=== PATIENT | female | born 1980 | race African-American/Black ===

== ENCOUNTER 2016-04-04 12:12 | Emergency (ER) | payer MEDICAID, OTHER ==
[~2016-04-04] VITALS: Ht 170.2 cm; Wt 110.0 kg
[~2016-04-04 12:12] MED LIST: BUDE0.5S NEB; EPIP0.3I IM; HYDR2.5C TOPICAL; LEVE10003 PO; NEBULIZER1 MI1; OXCA300T PO; SERT-129 PO; VENTAER INH
[2016-04-04 12:14] VITALS: BP 136/76; PULSE 82; RESP 12; TEMP 98.1; O2SAT 96
--- NOTE | 2016-04-04 15:36 | PD ---
HPI Chief Complaint: Headache Time Seen by Provider: 15:32 Travel History International Travel<30 days: No Contact w/Intl Traveler<30days: No Traveled to known affect area: No History of Present Illness HPI 35-year-old female presents to the emergency department for evaluation of migraine headache for 2 days. Patient reports history of migraine headaches and seizures for several years. Patient denies any fevers or chills. She states she is dizzy for the past 2 days which is new for her. Patient states the headache started 2 days ago and has gradually worsened. She does state it is worse than her typical migraine headaches. She states it is behind her eyes which is where her typical migraine headaches are. Patient wears chronic back pain, but no worsening back pain. She denies any syncope. No weakness. PFSH Past Medical History Asthma: Yes Diminished Hearing: No Musculoskeletal: Yes (FX LEFT ANKLE) ?: Not : 4 Para: 3 Miscarriage: 1 : 1 Past Surgical History Body Medical Devices: IUD Gynecologic Surgery: Yes (LEEP PROCEDURE; IUD) Tonsillectomy: Yes Social History Alcohol Use: Yes (OCCASSIONAL) Tobacco Use: No Substance Use: No Allergies-Medications (Allergen,Severity, Reaction): Coded Allergies: Augmentin (Verified Allergy, Severe, Hives, 04/04/16) E-Mycin (Verified Allergy, Severe, FACIAL SWELLING, EMESIS, 04/04/16) Penicillin (Verified Allergy, Severe, ANAPHALAXIS, 04/04/16) Reported Meds & Prescriptions Reported Meds & Active Scripts Active Nebulizer 1 Mis Mis 1 Ea .ROUTE DIRECTED Budesonide Neb 0.5 Mg/2 Ml Neb 1 Mg NEB Q12HR NEB Sertraline (Sertraline HCl) 100 Mg Tab 100 Mg PO DAILY Reported Oxcarbazepine 300 Mg Tab 300 Mg PO BID Levetiracetam 1,000 Mg Tab 1,000 Mg PO TID Hydrocortisone Topical 2.5% Cream 1 Applic TOPICAL BID Epipen 2-David Inj (Epinephrine) 0.3 Mg/0.3 Ml Pfpen 0.3 Mg IM ONCE PRN Ventolin Hfa 18 GM Inh (Albuterol Sulfate) 90 Mcg/Act Aer 1 Puff INH Q6HR PRN Review of Systems Except as stated in HPI: all other systems reviewed are Neg Physical Exam Exam Limitations: Left AMA Narrative Patient was initially seen in triage. I instructed the patient that I would start the workup. Before I was able to perform a physical exam, the patient stated she did not want to stay any longer here and she was aware that she would leave AGAINST MEDICAL ADVICE. Patient stated she wanted to leave and left. GENERAL: Well-developed well-nourished female patient, ambulatory with a steady gait. Afebrile. SKIN: Warm and dry. HEAD: Normocephalic. Atraumatic. EYES: No scleral icterus. No injection or drainage. RESPIRATORY: No accessory muscle use. MUSCULOSKELETAL: No cyanosis, or edema. Data Data Last Documented VS Vital Signs Date Time Temp Pulse Resp B/P Pulse Ox O2 Delivery O2 Flow Rate FiO2 04/04/16 12:14 98.1 82 12 136/76 96 Room Air MDM Medical Decision Making Medical Screen Exam Complete: Yes Emergency Medical Condition: Yes Medical Record Reviewed: Yes Differential Diagnosis Migraine headache versus tension type headache versus cluster headache Narrative Course 35-year-old female presents to the emergency department for evaluation of migraine headache which she states is worse in her typical migraine headache and dizziness for 2 days. Patient left AGAINST MEDICAL ADVICE before I could do a physical exam. She stated was irritated that she had to wait in the waiting room and did not want to stay any longer. AMA: The risks of leaving against medical advice without further evaluation treatment were discussed with the patient. These risks include cardiac dysfunction, cardiac dysrhythmia, possible heart attack, possible stroke or . The patient indicated understanding of these risks and appeared to have the capacity to make this decision. Diagnosis Primary Impression: Left against medical advice Disposition: 07 AGAINST MEDICAL ADVICE Dee Puckett Apr 04, 2016 15:36
[2016-04-05] MEDS ORDERED: BUDE0.5S NEB (13:53)
[2016-07-04] MEDS ORDERED: SULF1TAB23 PO (11:00)
[2016-08-02] MEDS ORDERED: IBUP800T23 PO (09:47)
== END 2016-04-04 13:30 | disposition left against medical advice (07) ==
LOC: NETRI 12:12
DX: R51 Headache (principal); J45.909 Unspecified asthma, uncomplicated
CPT/HCPCS: 99283

== ENCOUNTER 2016-05-30 21:43 | Emergency (ER) | payer MEDICAID ==
[~2016-05-30] VITALS: Ht 170.2 cm; Wt 111.0 kg
[2016-05-30 21:45] VITALS: BP 122/79; PULSE 87; RESP 16; TEMP 98.5; O2SAT 96
--- NOTE | 2016-05-30 22:35 | PD ---
Physical Exam Time Seen by Provider: 22:33 Narrative 35 Y/O FEMALE HERE WITH SYNCOPAL EVENT AT WORK. WOKE UP ON THE GROUND. HX OF SEIZURE DISORDER BUT DOESN'T BELIEVE SHE HAD A SEIZURE BECAUSE SHE HAD NO INCONTINENCE. COMPLAINS OF H/A, NECK PAIN, NAUSEA. VSS seen at triage desk. Awaiting bed placement. Data Data Last Documented VS Vital Signs Date Time Temp Pulse Resp B/P Pulse Ox O2 Delivery O2 Flow Rate FiO2 05/30/16 21:45 98.5 87 16 122/79 96 MDM Medical Record Reviewed: Yes Supervised Visit with RANJEET: Yes Mu Lee May 30, 2016 22:35
[2016-05-31] MEDS ORDERED: LACO100 PO (00:20)
[2016-05-31] MEDS ORDERED: VIMP200T PO (00:20)
[2016-05-31 00:22] VITALS: BP 133/87; PULSE 90; RESP 16; O2SAT 99
[2016-05-31] MEDS ORDERED: SODIUM CHLOR 0.9% 1000 ML INJ 1,000 ML IV ONE (01:29)
[2016-05-31] MEDS ORDERED: SODIUM CHLORIDE 0.9% FLUSH 10 ML FLUSH IVF PRN (01:30)
--- NOTE | 2016-05-31 01:37 | PD ---
HPI Chief Complaint: Syncope/Near-Syncope Time Seen by Provider: 01:26 Travel History International Travel<30 days: No Contact w/Intl Traveler<30days: No Traveled to known affect area: No History of Present Illness HPI Patient is a 35-year-old female with history of seizures, presents to emergency room after syncopal episode. At that she felt fine all day today, reports that she was at work and she reports that all of a sudden she was found on the ground. Patient reports that she thinks that she may have passed out. Patient reports that she does have history of seizures, reports that she takes Trileptal as well as Vinpap for her seizures, she also follows with Dr. Watson with neurology. Reports that she began to have seizures in September 2014, reports that she is unsure if she had a seizure today, reports that she has no incontinence of urine after her syncopal episode. Patient reports headache and nausea at this time. Patient denies chest pain or shortness breath. Patient with no fevers or chills, patient with no other complaints. PFSH Past Medical History Asthma: Yes Diminished Hearing: No Musculoskeletal: Yes (FX LEFT ANKLE) Seizures: Yes Tetanus Vaccination: > 5 Years Influenza Vaccination: No ?: Not LMP: MAR 2016 : 4 Para: 3 Miscarriage: 1 : 1 Tubal Ligation: Yes Past Surgical History Body Medical Devices: IUD Gynecologic Surgery: Yes (LEEP PROCEDURE; IUD) Tonsillectomy: Yes Social History Alcohol Use: Yes (OCCASSIONAL) Tobacco Use: No Substance Use: No Allergies-Medications (Allergen,Severity, Reaction): Coded Allergies: Augmentin (Verified Allergy, Severe, Hives, 05/30/16) E-Mycin (Verified Allergy, Severe, FACIAL SWELLING, EMESIS, 05/30/16) Penicillin (Verified Allergy, Severe, ANAPHALAXIS, 05/30/16) Reported Meds & Prescriptions Reported Meds & Active Scripts Active Budesonide Neb 0.5 Mg/2 Ml Neb 0.5 Mg NEB Q12HR NEB Reported Vimpat (Lacosamide) 200 Mg Tab 200 Mg PO HS Vimpat (Lacosamide) 100 Mg Tab 100 Mg PO BID Oxcarbazepine 300 Mg Tab 300 Mg PO BID Epipen 2-David Inj (Epinephrine) 0.3 Mg/0.3 Ml Pfpen 0.3 Mg IM ONCE PRN Ventolin Hfa 18 GM Inh (Albuterol Sulfate) 90 Mcg/Act Aer 1 Puff INH Q6HR PRN Review of Systems General / Constitutional: No: Fever Eyes: No: Visual changes HENT: No: Headaches Cardiovascular: No: Chest Pain or Discomfort Respiratory: No: Shortness of Breath Gastrointestinal: Positive: Nausea, No: Vomiting, Diarrhea, Abdominal Pain Genitourinary: No: Dysuria Musculoskeletal: No: Pain Skin: No Rash Neurologic: Positive: Syncope, Headache, No: Weakness Psychiatric: No: Depression Endocrine: No: Polydipsia Hematologic/Lymphatic: No: Easy Bruising Physical Exam Narrative GENERAL: Mild distress SKIN: warm/dry. HEAD: Atraumatic. Normocephalic. EYES: Pupils equal and round. No scleral icterus. No injection or drainage. ENT: No nasal bleeding or discharge. Mucous membranes pink and moist. NECK: Trachea midline. No JVD. Patient with C-spine precautions in place CARDIOVASCULAR: Regular rate and rhythm. No murmur appreciated. RESPIRATORY: No accessory muscle use. Clear to auscultation. Breath sounds equal bilaterally. GASTROINTESTINAL: Abdomen soft, non-tender, nondistended. Hepatic and splenic margins not palpable. MUSCULOSKELETAL: No obvious deformities. No clubbing. No cyanosis. No edema. NEUROLOGICAL: Awake and alert. No obvious cranial nerve deficits. Motor grossly within normal limits. Normal speech. PSYCHIATRIC: Appropriate mood and affect; insight and judgment normal. Data Data Last Documented VS Vital Signs Date Time Temp Pulse Resp B/P Pulse Ox O2 Delivery O2 Flow Rate FiO2 05/31/16 02:47 65 16 115/68 99 Room Air 05/30/16 21:45 98.5 Orders Complete Blood Count With Diff (05/31/16 01:29) Electrocardiogram (05/31/16 ) Ecg Monitoring (05/31/16 01:29) Iv Access Insert/Monitor (05/31/16 01:29) Oximetry (05/31/16 01:29) Comprehensive Metabolic Panel (05/31/16 01:29) Sodium Chlor 0.9% 1000 Ml Inj (Ns 1000 M (05/31/16 01:29) Sodium Chloride 0.9% Flush (Ns Flush) (05/31/16 01:30) Urinalysis - C+S If Indicated (05/31/16 01:29) Ed Urine Pregnancytest Poc (05/31/16 01:29) Ct Brain W/O Iv Contrast(Rout) (05/31/16 01:29) Ct Cerv Spine W/O Contrast (05/31/16 ) Dexamethasone Inj (Decadron Inj) (05/31/16 01:45) Metoclopramide Inj (Reglan Inj) (05/31/16 01:45) Labs Laboratory Tests Test 05/31/16 01:30 White Blood Count 12.8 TH/MM3 Red Blood Count 4.75 MIL/MM3 Hemoglobin 13.0 GM/DL Hematocrit 40.3 % Mean Corpuscular Volume 84.8 FL Mean Corpuscular Hemoglobin 27.5 PG Mean Corpuscular Hemoglobin 32.4 % Concent Red Cell Distribution Width 14.0 % Platelet Count 262 TH/MM3 Mean Platelet Volume 8.4 FL Neutrophils (%) (Auto) 79.0 % Lymphocytes (%) (Auto) 13.7 % Monocytes (%) (Auto) 4.0 % Eosinophils (%) (Auto) 2.9 % Basophils (%) (Auto) 0.4 % Neutrophils # (Auto) 10.1 TH/MM3 Lymphocytes # (Auto) 1.8 TH/MM3 Monocytes # (Auto) 0.5 TH/MM3 Eosinophils # (Auto) 0.4 TH/MM3 Basophils # (Auto) 0.0 TH/MM3 CBC Comment DIFF FINAL Differential Comment Urine Color YELLOW Urine Turbidity HAZY Urine pH 6.0 Urine Specific [place] 1.027 Urine Protein TRACE mg/dL Urine Glucose (UA) NEG mg/dL Urine Ketones NEG mg/dL Urine Occult Blood MOD Urine Nitrite NEG Urine Bilirubin NEG Urine Urobilinogen LESS THAN 2.0 MG/DL Urine Leukocyte Esterase SMALL Urine RBC 3 /hpf Urine WBC 3 /hpf Urine Squamous Epithelial 19 /hpf Cells Urine Bacteria RARE /hpf Urine Mucus MOD /lpf Microscopic Urinalysis Comment CULT NOT INDICATED Sodium Level 140 MEQ/L Potassium Level 3.5 MEQ/L Chloride Level 104 MEQ/L Carbon Dioxide Level 29.0 MEQ/L Anion Gap 7 MEQ/L Blood Urea Nitrogen 14 MG/DL Creatinine 0.69 MG/DL Estimat Glomerular Filtration 116 ML/MIN Rate Random Glucose 113 MG/DL Calcium Level 9.1 MG/DL Total Bilirubin 0.1 MG/DL Aspartate Amino Transf 15 U/L (AST/SGOT) Alanine Aminotransferase 24 U/L (ALT/SGPT) Alkaline Phosphatase 93 U/L Total Protein 7.6 GM/DL Albumin 3.7 GM/DL MDM Medical Decision Making Medical Screen Exam Complete: Yes Emergency Medical Condition: Yes Interpretation(s) EKG at 0143 NSR at 70bpm, qt/qtc: 395/416, no acute st or t wave changes Vital Signs Date Time Temp Pulse Resp B/P Pulse Ox O2 Delivery O2 Flow Rate FiO2 05/31/16 00:22 90 16 133/87 99 Room Air 05/30/16 22:34 16 05/30/16 21:45 98.5 87 16 122/79 96 Differential Diagnosis Electrolyte abnormality, syncope, seizure episode, intracranial hemorrhage, cervical spine fracture Narrative Course 35-year-old female with history of seizures, presents to emergency room after a possible syncopal episode. Patient reports that she was at work today, reports that her coworkers found her on the ground. Reports that she does not remember herself falling, tonight. Reports that the last thing that she remembers was waking up to her coworkers at her side. Patient unsure if she had a seizure episode today, she does have history of seizures, last seizure was a few weeks ago. Patient reports that she has been compliant with her medications. Patient currently complaining of headache and neck pain at this time. CT of the head and neck ordered. Labs ordered as well. Plan to hydrate patient and give IV antiemetics. CBC & BMP Diagram 05/31/16 01:[address] 05/31/16 0129 Signed Impressions: Service Date/Time: Tuesday, May 31, 2016 02:29 - CONCLUSION: No acute disease. Ean Pittman MD Cervical Spine CT 05/31/16 0000 Signed Impressions: Service Date/Time: Tuesday, May 31, 2016 02:33 - CONCLUSION: No fracture or subluxation. Ean Pittman MD Patient reevaluated, patient feeling much better at this time. I reviewed all labs and all studies with patient in detail. She will Follow-up with her primary care doctor as well to neurologist and will return to the emergency room as needed. Diagnosis Primary Impression: Syncopal seizure Additional Impression: Cephalgia Patient Instructions: General Instructions Additional Instructions: Please follow-up with your primary care doctor as well as your neurologist in 2- 3 days Return to emergency room as needed Return to emergency room if symptoms return Please take all medications as prescribed Do not drive the vehicle until you are cleared by your neurologist Disposition: 01 DISCHARGE HOME Condition: Stable Toshia Boyle DO May 31, 2016 01:37
[2016-05-31 01:41] VITALS: RESP 16; O2SAT 100
[2016-05-31 01:45] LABS: AUTOMATED NEUTROPHIL # 10.1 TH/MM3 (1.8-7.7); BASOPHIL % 0.4 % (0.0-2.0); EOSINOPHIL # 0.4 TH/MM3 (0-0.4); EOSINOPHIL % 2.9 % (0.0-4.0); HEMATOCRIT 40.3 % (35.0-46.0); HEMO FLAGS DIFF FINAL; LYMPH % 13.7 % (9.0-44.0); LYMPHOCYTE # 1.8 TH/MM3 (1.0-4.8); MEAN CELL VOLUME 84.8 FL (80.0-100.0); MEAN CORPUSCULAR HEMOGLOBIN 27.5 PG (27.0-34.0); MEAN CORPUSCULAR HGB CONC 32.4 % (32.0-36.0); PLATELET COUNT 262 TH/MM3 (150-450); RED BLOOD COUNT 4.75 MIL/MM3 (4.00-5.30); WHITE BLOOD COUNT 12.8 TH/MM3 (4.0-11.0)
[2016-05-31] MEDS ORDERED: DEXAMETHASONE SOD PHOS 20 MG/5 ML VIAL IV PUSH ONE (01:45)
[2016-05-31] MEDS ORDERED: METOCLOPRAMIDE HCL 10 MG/2 ML VIAL IV PUSH ONE (01:45)
[2016-05-31 02:00] LABS: BACTERIA, URINE RARE /hpf; BLOOD, URINE MOD (NEG); COMMENT (UR) CULT NOT INDICATED; CULTURE IF INDICATED CULT NOT INDICATED; GLUCOSE,URINE NEG (NEG); KETONE, URINE NEG (NEG); MUCUS URINE MOD /lpf (OCC); NITRITE,URINE NEG (NEG); SQUAMOUS EPITHELIAL CELL URINE 19 /hpf (0-5); URINE COLOR YELLOW (YELLW/STRAW)
[2016-05-31 02:09] LABS: ALKALINE PHOSPHATASE 93 U/L (45-117); ALT (GPT) 24 U/L (10-53); TOTAL BILIRUBIN ADULT 0.1 MG/DL (0.2-1.0)
[2016-05-31 02:16] LABS: ANION GAP 7 MEQ/L (5-15); AST (GOT) 15 U/L (15-37); BLOOD UREA NITROGEN 14 MG/DL (7-18); CHLORIDE 104 MEQ/L (98-107); GLOMERULAR FILTRATION RATE 116 ML/MIN (>89); POTASSIUM 3.5 MEQ/L (3.5-5.1); SODIUM (NA) 140 MEQ/L (136-145)
[2016-05-31 02:47] VITALS: BP 115/68; PULSE 65; RESP 16; O2SAT 99
--- NOTE | 2016-05-31 02:54 | RADRPT ---
EXAM DATE/TIME: 05/31/2016 02:29 [facility] COMPARISON: No previous studies available for comparison. INDICATIONS : Syncopal episode. Postive loss of consciousness. Possible head and neck trauma. RADIATION DOSE: 56.35 CTDIvol (mGy) MEDICAL HISTORY : Seizures. SURGICAL HISTORY : Tonsillectomy. Tubal ligation. ENCOUNTER: Initial ACUITY: 1 day PAIN SCALE: 4/10 LOCATION: cranial TECHNIQUE: Multiple contiguous axial images were obtained of the head. Using automated exposure control and adj ustment of the mA and/or kV according to patient size, radiation dose was kept as low as reasonably a chievable to obtain optimal diagnostic quality images. FINDINGS: CEREBRUM: The ventricles are normal for age. No evidence of midline shift, mass lesion, hemorrhage or acute in farction. No extra-axial fluid collections are seen. POSTERIOR FOSSA: The cerebellum and brainstem are intact. The 4th ventricle is midline. The cerebellopontine angle i s unremarkable. EXTRACRANIAL: The visualized portion of the orbits is intact. SKULL: The calvaria is intact. No evidence of skull fracture. CONCLUSION: No acute disease. Ean Pittman MD on May 31, 2016 at 2:49 Board Certified Radiologist. This report was verified electronically.
--- NOTE | 2016-05-31 03:05 | RADRPT ---
EXAM DATE/TIME: 05/31/2016 02:33 [facility] COMPARISON: CT CERVICAL SPINE W/O CONTRAST, December 06, 2013, 18:00. INDICATIONS : Syncopal episode. Postive loss of consciousness. Possible head and neck trauma. RADIATION DOSE: 34.49 CTDIvol (mGy) MEDICAL HISTORY : Seizures. SURGICAL HISTORY : Tonsillectomy. Tubal ligation. ENCOUNTER: Initial ACUITY: 1 day PAIN SCALE: 4/10 LOCATION: neck TECHNIQUE: Volumetric scanning of the cervical spine was performed. Multiplanar reconstructions in the sagittal, coronal and oblique axial planes were performed. Using automated exposure control and adjustment o f the mA and/or kV according to patient size, radiation dose was kept as low as reasonably achievable to obtain optimal diagnostic quality images. FINDINGS: VERTEBRAE: Normal vertebral body height. ALIGNMENT: No evidence of subluxation. C2-C3: The bony spinal canal is normal in size. No evidence of disc bulge or herniation. The neural forami na are bilaterally patent. C3-C4: The bony spinal canal is normal in size. No evidence of disc bulge or herniation. The neural forami na are bilaterally patent. C4-C5: The bony spinal canal is normal in size. No evidence of disc bulge or herniation. The neural forami na are bilaterally patent. C5-C6: The bony spinal canal is normal in size. No evidence of disc bulge or herniation. The neural forami na are bilaterally patent. C6-C7: The bony spinal canal is normal in size. No evidence of disc bulge or herniation. The neural forami na are bilaterally patent. C7-T1: The bony spinal canal is normal in size. No evidence of disc bulge or herniation. The neural forami na are bilaterally patent. CONCLUSION: No fracture or subluxation. Ean Pittman MD on May 31, 2016 at 3:03 Board Certified Radiologist. This report was verified electronically.
[2016-05-31 04:17] VITALS: BP 116/74; TEMP 98.3
--- NOTE | 2016-05-31 11:52 | EKG ---
Date Performed: 05/31/2016 Time Performed: 01:43:15 PTAGE: 35 years EKG: Sinus rhythm MODERATE VOLTAGE CRITERIA FOR LVH, CONSIDER NORMAL VARIANT BORDERLINE ECG PREVIOUS TRACING : 12/09/2005 19.16 DOCTOR: Alf Nascimento Interpretating Date/Time 05/31/2016 11:50:29
[2016-07-04] MEDS ORDERED: SULF1TAB23 PO (11:00)
[2016-08-02] MEDS ORDERED: IBUP800T23 PO (09:47)
== END 2016-05-31 04:18 | disposition home or self-care (01) ==
LOC: NEPC 21:43
DX: R55 Syncope and collapse (principal); R56.9 Unspecified convulsions; R51 Headache; M54.2 Cervicalgia; R11.0 Nausea; R94.31 Abnormal electrocardiogram [ECG] [EKG]; Z87.09 Personal history of other diseases of the respiratory system; Z87.39 Personal history of other diseases of the musculoskeletal system and connective tissue; Z86.69 Personal history of other diseases of the nervous system and sense organs
CPT/HCPCS: 70450; 72125; 80053; 81001; 84703; 85025; 93005; 96361; 96374; 96375; 99284; J1100; J2765; J7030; L0150

== ENCOUNTER 2016-07-30 13:31 | Emergency (ER) | payer MEDICAID ==
[~2016-07-30] VITALS: Ht 170.2 cm; Wt 92.0 kg
[~2016-07-30 13:31] MED LIST changes: -HYDR2.5C TOPICAL; +LACO100 PO; -LEVE10003 PO; -NEBULIZER1 MI1; -SERT-129 PO; +SULF1TAB23 PO; +VIMP200T PO
[2016-07-30 13:33] VITALS: BP 138/76; PULSE 84; RESP 16; TEMP 97.8; O2SAT 98
--- NOTE | 2016-07-30 14:41 | PD ---
HPI Chief Complaint: Seizure Time Seen by Provider: 14:00 Travel History International Travel<30 days: No Contact w/Intl Traveler<30days: No Traveled to known affect area: No History of Present Illness HPI This is a 35 year old female with history of seizure disorder, who presents today after having a seizure while at work. Patient states she fell and struck the left side of her head. She reports pain at left side of her head and left lateral neck. There was no reported incontinence. There is no reported biting of her tongue. There are no other injuries reported. Patient states she's been having more frequent seizures lately. She states that she's been working with her neurologist to adjust her medications. PFSH Past Medical History Asthma: Yes Diminished Hearing: No Musculoskeletal: Yes (FX LEFT ANKLE) Seizures: Yes Influenza Vaccination: No ?: Not LMP: MARCH 2016 : 4 Para: 3 Miscarriage: 1 : 1 Tubal Ligation: Yes Past Surgical History Body Medical Devices: IUD Gynecologic Surgery: Yes (LEEP PROCEDURE; IUD; NOVASURE PROCEDURE) Tonsillectomy: Yes Social History Alcohol Use: No Tobacco Use: No Substance Use: No Allergies-Medications (Allergen,Severity, Reaction): Coded Allergies: Augmentin (Verified Allergy, Severe, Hives, 07/30/16) E-Mycin (Verified Allergy, Severe, FACIAL SWELLING, EMESIS, 07/30/16) Penicillin (Verified Allergy, Severe, ANAPHALAXIS, 07/30/16) Seafood (Verified Allergy, Severe, ANAPHYLAXIS, 07/30/16) Reported Meds & Prescriptions Reported Meds & Active Scripts Active Reported Vimpat (Lacosamide) 200 Mg Tab 200 Mg PO HS Vimpat (Lacosamide) 100 Mg Tab 100 Mg PO DAILY Oxcarbazepine 300 Mg Tab 300 Mg PO BID Epipen 2-David Inj (Epinephrine) 0.3 Mg/0.3 Ml Pfpen 0.3 Mg IM ONCE PRN Review of Systems Except as stated in HPI: all other systems reviewed are Neg Eyes: No: Blurred Vision, Photophobia HENT: Positive: Headaches (left temporal), Neck Pain (left lateral) Cardiovascular: No: Chest Pain or Discomfort, Palpitations Respiratory: No: Cough, Shortness of Breath Gastrointestinal: No: Nausea, Vomiting, Abdominal Pain Genitourinary: No: Incontinence Musculoskeletal: Positive: Pain (left lateral neck pain), No: Weakness Neurologic: Positive: Headache (left lateral head), Seizures, No: Weakness, Slurred Speech Physical Exam Narrative GENERAL: Developed well-nourished female in no acute respiratory distress SKIN: Focused skin assessment warm/dry. HEAD: Atraumatic. Normocephalic. EYES: Pupils equal and round. No scleral icterus. No injection or drainage. ENT: No nasal bleeding or discharge. Mucous membranes pink and moist. NECK: Trachea midline. Left lateral paraspinous pain. No midline spinous process tenderness CARDIOVASCULAR: Regular rate and rhythm. No murmur appreciated. RESPIRATORY: No accessory muscle use. Clear to auscultation. Breath sounds equal bilaterally. GASTROINTESTINAL: Abdomen soft, non-tender, nondistended. MUSCULOSKELETAL: No obvious deformities. No clubbing. No cyanosis. No edema. NEUROLOGICAL: Awake and alert. No obvious cranial nerve deficits. Motor grossly within normal limits. Normal speech. PSYCHIATRIC: Appropriate mood and affect; insight and judgment normal. Data Data Last Documented VS Vital Signs Date Time Temp Pulse Resp B/P Pulse Ox O2 Delivery O2 Flow Rate FiO2 07/30/16 15:06 86 16 127/67 98 Room Air 07/30/16 13:33 97.8 Orders Basic Metabolic Panel (Bmp) (07/30/16 14:02) Magnesium (Mg) (07/30/16 14:02) Spine, Cervical - Ltd (Ap&Lat) (07/30/16 14:02) Ct Brain W/O Iv Contrast(Rout) (07/30/16 14:02) Ibuprofen (Motrin) (07/30/16 15:00) Labs Laboratory Tests Test 07/30/16 14:38 Sodium Level 138 MEQ/L Potassium Level 3.6 MEQ/L Chloride Level 102 MEQ/L Carbon Dioxide Level 27.1 MEQ/L Anion Gap 9 MEQ/L Blood Urea Nitrogen 14 MG/DL Creatinine 0.84 MG/DL Estimat Glomerular Filtration 92 ML/MIN Rate Random Glucose 97 MG/DL Calcium Level 9.0 MG/DL Magnesium Level 2.2 MG/DL MDM Medical Decision Making Medical Screen Exam Complete: Yes Emergency Medical Condition: Yes Differential Diagnosis Acute seizure versus syncope versus metabolic derangement. Narrative Course 35-year-old female who presents after having a seizure at work. The patient has a history of seizure disorder. The patient reports that she's had increased frequency of seizure activity. She states she and her neurologist are adjusting her seizure medication. Electrolytes are within normal limits. The patient's CT scan of the brain and plain films of the cervical spine are within normal limits. She'll be discharged home. She'll be told to call her neurologist tomorrow for possible medication adjustment. Diagnosis Primary Impression: Breakthrough seizure Additional Impression: History of seizure disorder Additional Instructions: Call your neurologist tomorrow for possible medication adjustment. Disposition: 01 DISCHARGE HOME Condition: Stable Tank Bull MD Jul 30, 2016 14:41
--- NOTE | 2016-07-30 14:45 | RADRPT ---
EXAM DATE/TIME: 07/30/2016 14:13 [facility] COMPARISON: CT CERVICAL SPINE W/O CONTRAST, May 31, 2016, 2:33. INDICATIONS : Neck pain after having a seizure and falling. MEDICAL HISTORY : Seziures. SURGICAL HISTORY : Tonsillectomy. Tubal ligation. ENCOUNTER: Initial ACUITY: 1 day PAIN SCORE: 7/10 LOCATION: cervical spine FINDINGS: Two projection examination was performed. There is normal alignment and curvature of the vertebral b odies down to the level of C7. No evidence of fracture or subluxation. Vertebral body height is khadar ntained. The disc spaces are maintained. The prevertebral soft tissues are of normal thickness. Th e atlanto-axial articulation is intact. CONCLUSION: X-rays of the cervical spine are within normal limits. Ky Rico MD on July 30, 2016 at 14:42 Board Certified Radiologist. This report was verified electronically.
--- NOTE | 2016-07-30 14:55 | RADRPT ---
EXAM DATE/TIME: 07/30/2016 14:25 [facility] COMPARISON: CT BRAIN W/O CONTRAST, May 31, 2016, 2:29. INDICATIONS : Seizure. RADIATION DOSE: 36.35 CTDIvol (mGy) IF STROKE ALERT - check box below MEDICAL HISTORY : Seizures. SURGICAL HISTORY : Tubal ligation. Tonsillectomy. ENCOUNTER: Initial ACUITY: 1 day PAIN SCALE: 4/10 LOCATION: cranial TECHNIQUE: Multiple contiguous axial images were obtained of the head. Using automated exposure control and adj ustment of the mA and/or kV according to patient size, radiation dose was kept as low as reasonably a chievable to obtain optimal diagnostic quality images. FINDINGS: CEREBRUM: The ventricles are normal for age. No evidence of midline shift, mass lesion, hemorrhage or acute in farction. No extra-axial fluid collections are seen. POSTERIOR FOSSA: The cerebellum and brainstem are intact. The 4th ventricle is midline. The cerebellopontine angle i s unremarkable. EXTRACRANIAL: The visualized portion of the orbits is intact. SKULL: The calvaria is intact. No evidence of skull fracture. CONCLUSION: Negative noncontrast head CT. Ky Rico MD on July 30, 2016 at 14:52 Board Certified Radiologist. This report was verified electronically.
[2016-07-30] MEDS ORDERED: IBUPROFEN 600 MG TAB PO ONE (15:00)
[2016-07-30 15:06] VITALS: BP 127/67; PULSE 86; RESP 16; O2SAT 98
[2016-07-30 15:42] LABS: BICARBONATE 27.1 MEQ/L (21.0-32.0); MAGNESIUM 2.2 MG/DL (1.5-2.5); POTASSIUM 3.6 MEQ/L (3.5-5.1)
[2016-08-02] MEDS ORDERED: IBUP800T23 PO (09:47)
== END 2016-07-30 17:22 | disposition home or self-care (01) ==
LOC: NEPE 13:31
DX: G40.89 Other seizures (principal); R51 Headache; M54.2 Cervicalgia; Z79.899 Other long term (current) drug therapy; Z86.69 Personal history of other diseases of the nervous system and sense organs; Z87.09 Personal history of other diseases of the respiratory system; Z87.39 Personal history of other diseases of the musculoskeletal system and connective tissue
CPT/HCPCS: 70450; 72040; 80048; 83735

== ENCOUNTER 2016-10-02 14:05 | Emergency (ER) | payer MEDICAID ==
[~2016-10-02] VITALS: Ht 170.2 cm; Wt 115.0 kg
[~2016-10-02 14:05] MED LIST changes: -BUDE0.5S NEB; +IBUP800T23 PO; -SULF1TAB23 PO; -VENTAER INH
[2016-10-02 14:18] VITALS: BP 116/59; PULSE 116; RESP 18; TEMP 98.4; O2SAT 96
[2016-10-02] MEDS ORDERED: SODIUM CHLOR 0.9% 1000 ML INJ 1,000 ML IV ONE (14:21)
[2016-10-02 14:24] VITALS: PULSE 116; RESP 18; TEMP 98.4; O2SAT 95
--- NOTE | 2016-10-02 14:29 | PD ---
HPI Chief Complaint: Seizure Time Seen by Provider: 19:28 Travel History International Travel<30 days: No Contact w/Intl Traveler<30days: No Traveled to known affect area: No History of Present Illness HPI 35- year old female brought to the ED by EVAC complaining of a seizure. Per EVAC the patient was at an eyeglass store when she had her seizure. She was sitting and was then assisted to the ground. She did not fall or hit her head. She reports that she has a history of seizures and Asthma. She states that she had three seizures in the past month. Her blood sugar en route to the hospital was 144. She takes Vimpat and Oxycarbazine for her seizures and states she has not missed a dose. She is currently complaining of a slight headache and that she bit her tongue. She rates her headache as a 7/10. She reports no other medications other than her seizure medications. PFSH Past Medical History Asthma: Yes Diminished Hearing: No Musculoskeletal: Yes (FX LEFT ANKLE) Seizures: Yes ?: Not : 5 Para: 4 Miscarriage: 1 : 1 Tubal Ligation: Yes Past Surgical History Body Medical Devices: IUD Gynecologic Surgery: Yes (LEEP PROCEDURE; IUD; NOVASURE PROCEDURE) Tonsillectomy: Yes Social History Alcohol Use: No Tobacco Use: No Substance Use: No Allergies-Medications (Allergen,Severity, Reaction): Coded Allergies: Augmentin (Verified Allergy, Severe, Hives, 10/02/16) E-Mycin (Verified Allergy, Severe, FACIAL SWELLING, EMESIS, 10/02/16) Penicillin (Verified Allergy, Severe, ANAPHALAXIS, 10/02/16) Seafood (Verified Allergy, Severe, ANAPHYLAXIS, 10/02/16) Reported Meds & Prescriptions Reported Meds & Active Scripts Active Ibuprofen 800 Mg Tab 800 Mg PO Q6HR PRN Reported Vimpat (Lacosamide) 200 Mg Tab 200 Mg PO HS Vimpat (Lacosamide) 100 Mg Tab 100 Mg PO DAILY Oxcarbazepine 300 Mg Tab 300 Mg PO BID Epipen 2-David Inj (Epinephrine) 0.3 Mg/0.3 Ml Pfpen 0.3 Mg IM ONCE PRN Review of Systems General / Constitutional: No: Fever, Chills, Weight Gain, Weight Loss, Other Eyes: No: Diploplia, Blurred Vision, Photophobia, Drainage, Redness, Foreign Body Sensation, Pain, Tearing, Blind Spots, Visual changes, Blindness, Other HENT: Positive: Headaches, No: Vertigo, Lightheadedness, Sore Throat, Rhinitis , Rhinorrhea, Congestion, Nosebleed, Neck Stiffness, Neck Pain, Masses, Gingival Bleeding, Dental Difficulties, Ear Discharge, Earache, Other Cardiovascular: No: Chest Pain or Discomfort, Palpitations, Irregular Rhythm, Tachycardia, Diaphoresis, Syncope, Dyspnea on exertion, Varicosities, Edema, Cyanosis, Varicosities, Phlebitis, Claudication, Other Respiratory: No: Cough, Shortness of Breath, Wheezing, Sneezing, Orthopnea, Hemoptysis, Stridor, Night Sweats, Pleuritic Pain, Other Gastrointestinal: No: Nausea, Vomiting, Diarrhea, Abdominal Pain, Hematemesis, Hematochezia, Constipation, Changes in Bowel Habits, Indigestion, Dysphagia, Loss of Appetite, Other Genitourinary: No: Urgency, Frequency, Dysuria, Nocturia, Hematuria, Decreased Urinary Output, Oliguria, Hesitancy, Dribbling, Incontinence, Pelvic Pain, Flank Pain, Dyspareunia, Discharge, Dysmenorrhea, Menorrhagia, Metorrhagia, Vaginal Bleeding, Other Musculoskeletal: No: Myalgias, Arthralgias, Limited ROM, Weakness, Cramping, Edema, Pain, Atrophy, Other Skin: No Rash, No Itching, No Dryness, No Lumps, No Hives, No Change in Pigmentation, No Change in nails, No Alopecia, No Lesions, No Breast Lumps, No Breast Tenderness, No Breast Swelling, No Other Neurologic: Positive: Seizures, No: Weakness, Dizziness, Syncope, Focal Abnormalities, Coordination Problem, Tremor, Ataxia, Headache, Change in Mentation, Slurred Speech, Paresthesia, Incontinence, Sensory Disturbance, Other Psychiatric: No: Anxiety, Depression, Suicidal Ideations, Disorder of Thought, Mood Disorder, Substance Abuse, Homicidal Ideation, Other Endocrine: No: Heat Intolerance, Cold Intolerance, Polyuria, Polydipsia, Other Hematologic/Lymphatic: No: Easy Bruising, Lymph Node Enlargement, Other Physical Exam Narrative GENERAL: SKIN: Warm and dry. HEAD: Atraumatic. Normocephalic. EYES: Pupils equal and round. No scleral icterus. No injection or drainage. ENT: No nasal bleeding or discharge. Mucous membranes pink and moist. NECK: Trachea midline. No JVD. CARDIOVASCULAR: Regular rate and rhythm. No murmurs, S3, S4. RESPIRATORY: No accessory muscle use. Clear to auscultation. Breath sounds equal bilaterally. GASTROINTESTINAL: Abdomen soft, non-tender, nondistended. Hepatic and splenic margins not palpable. MUSCULOSKELETAL: Extremities without clubbing, cyanosis, or edema. No obvious deformities. Full range of motion of the upper and lower extremities bilaterally. 2+ pulses bilaterally. NEUROLOGICAL: Post ictal. Awake and alert. No obvious cranial nerve deficits. Motor grossly within normal limits. Five out of 5 muscle strength in the arms and legs. Normal speech. PSYCHIATRIC: Appropriate mood and affect; insight and judgment normal. Data Data Last Documented VS Vital Signs Date Time Temp Pulse Resp B/P Pulse Ox O2 Delivery O2 Flow Rate FiO2 10/02/16 18:41 79 18 116/79 98 10/02/16 15:49 Room Air 10/02/16 14:24 98.4 Orders Complete Blood Count With Diff (10/02/16 14:21) Basic Metabolic Panel (Bmp) (10/02/16 14:21) Alcohol (Ethanol) (10/02/16 14:21) Blood Glucose (10/02/16 14:21) Ecg Monitoring (10/02/16 14:21) Iv Access Insert/Monitor (10/02/16 14:21) Oximetry (10/02/16 14:21) Sodium Chlor 0.9% 1000 Ml Inj (Ns 1000 M (10/02/16 14:21) Trileptal (Oxycarbazapine) (10/02/16 14:22) Acetaminophen (Tylenol) (10/02/16 14:30) Ct Brain W/O Iv Contrast(Rout) (10/02/16 ) Ed Urine Pregnancytest Poc (10/02/16 14:33) Labs Laboratory Tests Test 10/02/16 10/02/16 14:35 16:05 White Blood Count 12.3 TH/MM3 Red Blood Count 4.43 MIL/MM3 Hemoglobin 12.9 GM/DL Hematocrit 38.2 % Mean Corpuscular Volume 86.2 FL Mean Corpuscular Hemoglobin 29.0 PG Mean Corpuscular Hemoglobin 33.7 % Concent Red Cell Distribution Width 13.7 % Platelet Count 262 TH/MM3 Mean Platelet Volume 8.7 FL Neutrophils (%) (Auto) 78.9 % Lymphocytes (%) (Auto) 13.7 % Monocytes (%) (Auto) 4.2 % Eosinophils (%) (Auto) 2.8 % Basophils (%) (Auto) 0.4 % Neutrophils # (Auto) 9.7 TH/MM3 Lymphocytes # (Auto) 1.7 TH/MM3 Monocytes # (Auto) 0.5 TH/MM3 Eosinophils # (Auto) 0.3 TH/MM3 Basophils # (Auto) 0.0 TH/MM3 CBC Comment DIFF FINAL Differential Comment Sodium Level 138 MEQ/L Potassium Level 3.5 MEQ/L Chloride Level 104 MEQ/L Carbon Dioxide Level 26.1 MEQ/L Anion Gap 8 MEQ/L Blood Urea Nitrogen 12 MG/DL Creatinine 0.71 MG/DL Estimat Glomerular Filtration 112 ML/MIN Rate Random Glucose 89 MG/DL Calcium Level 8.2 MG/DL Ethyl Alcohol Level LESS THAN 3 MG/DL MDM Medical Decision Making Medical Screen Exam Complete: Yes Emergency Medical Condition: Yes Medical Record Reviewed: Yes Interpretation(s) Last Impressions Head CT 10/02/16 0000 Signed Impressions: Service Date/Time: Sunday, October 02, 2016 15:09 - CONCLUSION: Negative for an acute process. Davin Bone MD FACR CBC & BMP Diagram 10/02/16 14:35 10/02/16 16:05 Differential Diagnosis Seizure vs. Breakthrough seizure Headache Drug Overdose Syncope Narrative Course 35-year-old male that presents to the ED for evaluation of possible seizure. Patient was properly examined and was found to have signs and symptoms consistent with seizure. No sign of acute medical distress per labs and imaging were ordered. Labs and imaging were essentially unremarkable. Patient was told to follow with her neurologist. See ED for any worsening symptoms. Follow with PCP. Diagnosis Primary Impression: Breakthrough seizure Patient Instructions: General Instructions Additional Instructions: Taking medications as prescribed. Follow with your doctor. See ED for worsening symptoms. Med/Other Pt SpecificInfo: Prescription(s) given Disposition: 01 DISCHARGE HOME Condition: Stable Oziel Esparza Oct 02, 2016 14:29
[2016-10-02] MEDS ORDERED: ACETAMINOPHEN 325 MG TAB PO ONE (14:30)
[2016-10-02 15:08] LABS: AUTOMATED NEUTROPHIL # 9.7 TH/MM3 (1.8-7.7); BASOPHIL % 0.4 % (0.0-2.0); EOSINOPHIL # 0.3 TH/MM3 (0-0.4); EOSINOPHIL % 2.8 % (0.0-4.0); HEMATOCRIT 38.2 % (35.0-46.0); HEMO FLAGS DIFF FINAL; LYMPH % 13.7 % (9.0-44.0); LYMPHOCYTE # 1.7 TH/MM3 (1.0-4.8); MEAN CELL VOLUME 86.2 FL (80.0-100.0); MEAN CORPUSCULAR HGB CONC 33.7 % (32.0-36.0); MONO % 4.2 % (0.0-8.0); NEUT % 78.9 % (16.0-70.0); PLATELET COUNT 262 TH/MM3 (150-450); RED BLOOD COUNT 4.43 MIL/MM3 (4.00-5.30); RED CELL DISTRIBUTION WIDTH 13.7 % (11.6-17.2); WHITE BLOOD COUNT 12.3 TH/MM3 (4.0-11.0)
--- NOTE | 2016-10-02 15:40 | RADRPT ---
EXAM DATE/TIME: 10/02/2016 15:09 [facility] COMPARISON: CT BRAIN W/O CONTRAST, July 30, 2016, 14:25. INDICATIONS : Headache RADIATION DOSE: 52.47 CTDIvol (mGy) MEDICAL HISTORY : Seizures. SURGICAL HISTORY : Tonsillectomy. ENCOUNTER: Initial ACUITY: 1 day PAIN SCALE: 7/10 LOCATION: cranial TECHNIQUE: Multiple contiguous axial images were obtained of the head. Using automated exposure control and adj ustment of the mA and/or kV according to patient size, radiation dose was kept as low as reasonably a chievable to obtain optimal diagnostic quality images. DICOM format image data is available electro nically for review and comparison. FINDINGS: CEREBRUM: The ventricles are normal for age. No evidence of midline shift, mass lesion, hemorrhage or acute in farction. No extra-axial fluid collections are seen. POSTERIOR FOSSA: The cerebellum and brainstem are intact. The 4th ventricle is midline. The cerebellopontine angle i s unremarkable. EXTRACRANIAL: The visualized portion of the orbits is intact. SKULL: The calvaria is intact. No evidence of skull fracture. CONCLUSION: Negative for an acute process. Davin Bone MD FACR on October 02, 2016 at 15:38 Board Certified Radiologist. This report was verified electronically.
[2016-10-02 15:49] VITALS: BP 119/68; PULSE 70; RESP 18; O2SAT 98
[2016-10-02 16:30] VITALS: RESP 16
[2016-10-02 17:35] LABS: ANION GAP 8 MEQ/L (5-15); BICARBONATE 26.1 MEQ/L (21.0-32.0); CHLORIDE 104 MEQ/L (98-107); GLOMERULAR FILTRATION RATE 112 ML/MIN (>89); POTASSIUM 3.5 MEQ/L (3.5-5.1); SODIUM (NA) 138 MEQ/L (136-145)
[2016-10-02 17:43] LABS: ALCOHOL LESS THAN 3 MG/DL (0-5); BLOOD UREA NITROGEN 12 MG/DL (7-18)
[2016-10-02 18:41] VITALS: BP 116/79
[2016-10-06] MEDS ORDERED: MELO7.5T4 PO (10:14)
== END 2016-10-02 18:42 | disposition home or self-care (01) ==
LOC: NEPE 14:05
DX: G40.909 Epilepsy, unspecified, not intractable, without status epilepticus (principal)
CPT/HCPCS: 70450; 80048; 80183; 80307; 84703; 85025; 96360; 99284; J7030

== ENCOUNTER 2016-11-30 18:30 | Emergency (ER) | payer MEDICAID ==
[~2016-11-30] VITALS: Ht 170.2 cm; Wt 112.0 kg
[~2016-11-30 18:30] MED LIST changes: +MELO7.5T4 PO
[2016-11-30 18:34] VITALS: BP 152/74; PULSE 140; RESP 18; TEMP 98.9; O2SAT 94
[2016-11-30 18:43] VITALS: RESP 18; O2SAT 94
[2016-11-30] MEDS ORDERED: SODIUM CHLORIDE 0.9% FLUSH 10 ML FLUSH IVF PRN (18:45)
[2016-11-30] MEDS ORDERED: LACOSAMIDE 100 MG TAB PO ONE (18:45)
[2016-11-30] MEDS ORDERED: OXcarbazepine 600 MG TAB PO ONE (18:45)
[2016-11-30] MEDS ORDERED: ACETAMINOPHEN 325 MG TAB PO ONE (19:00)
[2016-11-30 19:28] LABS: BASOPHIL # 0.1 TH/MM3 (0-0.2); BASOPHIL % 0.6 % (0.0-2.0); HEMATOCRIT 43.8 % (35.0-46.0); LYMPH % 34.1 % (9.0-44.0); MEAN CELL VOLUME 90.2 FL (80.0-100.0); MEAN CORPUSCULAR HEMOGLOBIN 28.5 PG (27.0-34.0); MEAN CORPUSCULAR HGB CONC 31.6 % (32.0-36.0); MONO % 7.2 % (0.0-8.0); NEUT % 53.1 % (16.0-70.0); PLATELET COUNT 369 TH/MM3 (150-450); RED BLOOD COUNT 4.86 MIL/MM3 (4.00-5.30); RED CELL DISTRIBUTION WIDTH 14.4 % (11.6-17.2); WHITE BLOOD COUNT 20.6 TH/MM3 (4.0-11.0)
[2016-11-30 19:33] LABS: HEMO FLAGS AUTO DIFF
[2016-11-30 19:42] LABS: ANION GAP 22 MEQ/L (5-15); BICARBONATE 13.2 MEQ/L (21.0-32.0); BLOOD UREA NITROGEN 11 MG/DL (7-18); CHLORIDE 101 MEQ/L (98-107); GLOMERULAR FILTRATION RATE 74 ML/MIN (>89); MAGNESIUM 2.4 MG/DL (1.5-2.5); SODIUM (NA) 136 MEQ/L (136-145)
[2016-11-30 19:43] LABS: ALCOHOL LESS THAN 3 MG/DL (0-5); POTASSIUM 3.7 MEQ/L (3.5-5.1)
[2016-11-30 20:03] LABS: BASOPHILS 1 % (0-2); CORRECTED NUCLEATED RBC 1 /100 WBC (0-0); EOSINOPHILS 10 % (0-4); POLYS (SEG NEUTROPHILS) 39 % (16-70); WBC DIFF SAMPLE 100
[2016-11-30 20:04] LABS: PLATELET ESTIMATE SMEAR NORMAL (NORMAL); PLATELET MORPHOLOGY NORMAL (NORMAL); SCAN/DIFF FINAL DIFF MANUAL
[2016-11-30 21:28] LABS: BLOOD, URINE NEG (NEG); GLUCOSE,URINE NEG (NEG); HYALINE CAST, URINE 6 /lpf (RARE); KETONE, URINE TRACE mg/dL (NEG); MUCUS URINE FEW /lpf (OCC); NITRITE,URINE NEG (NEG); SQUAMOUS EPITHELIAL CELL URINE 16 /hpf (0-5); URINE COLOR LIGHT-YELLOW (YELLW/STRAW)
--- NOTE | 2016-11-30 22:58 | PD ---
Physical Exam Narrative Patient was seen by ED physician and signed out to me. Data Data Last Documented VS Vital Signs Date Time Temp Pulse Resp B/P (MAP) Pulse Ox O2 Delivery O2 Flow Rate FiO2 11/30/16 18:43 18 94 Room Air 11/30/16 18:40 137 11/30/16 18:34 98.9 152/74 (100) Orders Orders Complete Blood Count With Diff (11/30/16 18:37) Basic Metabolic Panel (Bmp) (11/30/16 18:37) Alcohol (Ethanol) (11/30/16 18:37) Drug Screen, Random Urine (11/30/16 18:37) Blood Glucose (11/30/16 18:37) Ecg Monitoring (11/30/16 18:37) Iv Access Insert/Monitor (11/30/16 18:37) Oximetry (11/30/16 18:37) Sodium Chloride 0.9% Flush (Ns Flush) (11/30/16 18:45) Ua Includes Microscopic (11/30/16 18:37) Lacosamide (Vimpat) (11/30/16 18:45) Oxcarbazepine (Trileptal) (11/30/16 18:45) Magnesium (Mg) (11/30/16 18:37) Electrocardiogram (11/30/16 ) Acetaminophen (Tylenol) (11/30/16 19:00) Ed Discharge Order (11/30/16 22:56) Labs Laboratory Tests Test 11/30/16 18:45 11/30/16 21:00 White Blood Count 20.6 TH/MM3 Red Blood Count 4.86 MIL/MM3 Hemoglobin 13.9 GM/DL Hematocrit 43.8 % Mean Corpuscular Volume 90.2 FL Mean Corpuscular Hemoglobin 28.5 PG Mean Corpuscular Hemoglobin Concent 31.6 % Red Cell Distribution Width 14.4 % Platelet Count 369 TH/MM3 Mean Platelet Volume 8.4 FL Neutrophils (%) (Auto) 53.1 % Lymphocytes (%) (Auto) 34.1 % Monocytes (%) (Auto) 7.2 % Eosinophils (%) (Auto) 5.0 % Basophils (%) (Auto) 0.6 % Neutrophils # (Auto) 11.0 TH/MM3 Lymphocytes # (Auto) 7.0 TH/MM3 Monocytes # (Auto) 1.5 TH/MM3 Eosinophils # (Auto) 1.0 TH/MM3 Basophils # (Auto) 0.1 TH/MM3 CBC Comment AUTO DIFF Differential Total Cells Counted 100 Neutrophils % (Manual) 39 % Lymphocytes % 44 % Monocytes % 6 % Eosinophils % 10 % Basophils % 1 % Neutrophils # (Manual) 8.0 TH/MM3 Nucleated Red Blood Cells 1 /100 WBC Differential Comment FINAL DIFF MANUAL Platelet Estimate NORMAL Platelet Morphology Comment NORMAL Red Cell Morphology Comment NORMAL Blood Urea Nitrogen 11 MG/DL Creatinine 1.02 MG/DL Random Glucose 126 MG/DL Calcium Level 9.5 MG/DL Magnesium Level 2.4 MG/DL Sodium Level 136 MEQ/L Potassium Level 3.7 MEQ/L Chloride Level 101 MEQ/L Carbon Dioxide Level 13.2 MEQ/L Anion Gap 22 MEQ/L Estimat Glomerular Filtration Rate 74 ML/MIN Ethyl Alcohol Level LESS THAN 3 MG/DL Urine Color LIGHT-YELLOW Urine Turbidity HAZY Urine pH 5.0 Urine Specific [place] 1.015 Urine Protein TRACE mg/dL Urine Glucose (UA) NEG mg/dL Urine Ketones TRACE mg/dL Urine Occult Blood NEG Urine Nitrite NEG Urine Bilirubin NEG Urine Urobilinogen LESS THAN 2.0 MG/DL Urine Leukocyte Esterase NEG Urine RBC 1 /hpf Urine WBC 1 /hpf Urine Squamous Epithelial Cells 16 /hpf Urine Hyaline Casts 6 /lpf Urine Mucus FEW /lpf Urine Opiates Screen NEG Urine Barbiturates Screen NEG Urine Amphetamines Screen NEG Urine Benzodiazepines Screen NEG Urine Cocaine Screen NEG Urine Cannabinoids Screen NEG MDM Supervised Visit with RANJEET: No Narrative Course Patient had breakthrough seizure. Patient has been seen by neurologist and seizure clinic in [place]. Patient has frequent breakthrough seizures despite medications. Patient's workup in progress. Diagnosis Primary Impression: Breakthrough seizure Patient Instructions: General Instructions Additional Instruction: Continue with seizure medication. Advised patient not to drive until cleared by neurologist. Follow-up with personal physician and neurologist. Med/Other Pt SpecificInfo: No Change to Meds Disposition: 01 DISCHARGE HOME Condition: Stable Celso Arthur MD Nov 30, 2016 22:58
--- NOTE | 2016-12-01 07:08 | EKG ---
Date Performed: 11/30/2016 Time Performed: 18:41:25 PTAGE: 35 years EKG: SINUS TACHYCARDIA ABNORMAL RHYTHM ECG NO PREVIOUS TRACING DOCTOR: López Gillis Interpretating Date/Time 12/01/2016 07:07:01
== END 2016-11-30 23:30 | disposition home or self-care (01) ==
LOC: NEPC 18:30
DX: G40.909 Epilepsy, unspecified, not intractable, without status epilepticus (principal); Z79.899 Other long term (current) drug therapy
CPT/HCPCS: 80048; 80307; 81001; 83735; 85007; 85027; 93005; 99284